=== PATIENT | male | born 1965 | race Caucasian/White ===

== ENCOUNTER 2021-07-19 15:02 | Outpatient (RCR) | payer OTHER ==
[~2021-07-19 15:02] MED LIST: BACTRIM DS 8001 TA1 PO; BACTRIM DS 8001 TAB PO; CIPRO 500MG TA500 MG PO; FLOMAX0.4 MG PO; NORCO 325 MG-51 TAB PO; PAXIL10 MG PO; PERCOCET 325 MG1 TA4 PO; XANAX0.5 MG PO; ZOFRAN ODT8 MG PO
== END 2021-10-17 | disposition home or self-care (01) ==
LOC: CARDREHAB
DX: Z48.812 Encounter for surgical aftercare following surgery on the circulatory system (principal); Z95.5 Presence of coronary angioplasty implant and graft